=== PATIENT | male | born 1980 | race African-American/Black ===

== ENCOUNTER 2019-10-18 08:58 | Outpatient (CLI) | payer MEDICARE, MEDICAID ==
--- NOTE | 2019-10-18 09:32 | RAD ---
RADIOGRAPH CHEST 2 VIEWS: DATE: 10/18/2019. HISTORY: A 39-year-old male with dyspnea. FINDINGS: The lungs are clear. The cardiomediastinal silhouette and hilar shadows are normal. There is no ple ural effusion. The osseous structures appear normal. There is no pneumothorax. There is a right-si ded PICC with distal tip at the SVC. IMPRESSION: 1. Right-sided peripherally inserted central catheter. 2. Otherwise, normal. jn R POS: [facility]
== END 2019-10-18 08:59 | disposition home or self-care (01) ==
LOC: RAD 08:58
PROVIDERS: ATTEND Internal Medicine Critical Care Medicine
DX: R06.00 Dyspnea, unspecified (principal); Z95.828 Presence of other vascular implants and grafts
CPT/HCPCS: 71046